=== PATIENT | female | born 1995 | race Hispanic/Latino ===

== ENCOUNTER 2023-10-01 16:38 | Emergency (ER) | payer OTHER ==
[~2023-10-01] VITALS: Ht 167.6 cm; Wt 92.4 kg
[2023-10-01] MEDS: ACETAMINOPHEN TAB 650MG DOSE (2X325MG) PO ONE (22:06)
[2023-10-01] MEDS: KETOROLAC 30 MG/ML 1ML VIAL IV ONE (22:06)
[2023-10-01] MEDS: ONDANSETRON 4MG 2ML VIAL IV ONE (22:06)
[2023-10-01] MEDS: NS 1,000 ML IV ONE (22:07)
[2023-10-01] MEDS ORDERED: ONDA4TAB6 PO (23:52)
[2023-10-02 00:14] VITALS: BP 117/80; TEMP 98; O2SAT 100
== END 2023-10-02 00:18 | disposition home or self-care (01) ==
LOC: M ED 16:38
DX: G43.909 Migraine, unspecified, not intractable, without status migrainosus (principal); Z88.0 Allergy status to penicillin; Z79.83 Long term (current) use of bisphosphonates
CPT/HCPCS: 70450; 96361; 96374; 99284; J1885; J2405